=== PATIENT | female | born 2005 | race Caucasian/White ===

== ENCOUNTER 2024-01-11 23:32 | Emergency (ER) | payer SELFPAY ==
[~2024-01-11] VITALS: Ht 165.1 cm; Wt 78.0 kg
[2024-01-11 23:54] VITALS: O2SAT 98
[2024-01-12] MEDS ORDERED: METOCLOPRAMIDE HCL 10MG/2ML VIAL IV ONE (02:00)
[2024-01-12] MEDS ORDERED: KETOROLAC 15MG/ML VIAL IV ONE (02:00)
[2024-01-12 03:00] LABS: *AMPHETAMINES SCREEN URINE NEGATIVE (NEGATIVE); *BARBITURATES SCREEN URINE NEGATIVE (NEGATIVE); *BENZODIAZEPINES SCREEN URINE NEGATIVE (NEGATIVE); *COCAINE SCREEN URINE NEGATIVE (NEGATIVE); CANNABINOID URINE SCREEN NEGATIVE (NEGATIVE); ECSTASY MDMA SCREEN URINE NEGATIVE (NEGATIVE); METHADONE URINE SCREEN NEGATIVE (NEGATIVE); OPIATES URINE SCREEN NEGATIVE (NEGATIVE); PHENCYCLIDINE URINE SCREEN NEGATIVE (NEGATIVE)
[2024-01-12 03:46] LABS: BASOPHILS % 0.4 % (0.0-2.0); EOSINOPHILS % 4.2 % (0.0-5.0); HEMATOCRIT. 40.1 % (36.0-48.0); HEMOGLOBIN. 13.4 g/dL (12.0-16.0); LYMPHOCYTES % 24.2 % (20.0-50.0); MEAN CORPUSCULAR HEMOGLOBIN 29.5 pg (28.0-32.0); MEAN CORPUSCULAR HGB CONC 33.5 g/dL (31.0-37.0); MEAN CORPUSCULAR VOLUME 88.2 fL (81.0-99.0); MEAN PLATELET VOLUME 9.6 fl (7.4-10.4); MONOCYTES % 7.3 % (2.0-8.0); NEUTROPHILS % 63.9 % (40.0-76.0); PLATELET 205 x1000/uL (130-400); RED BLOOD CELL COUNT 4.54 mill/uL (4.2-5.4); RED CELL DISTRIBUTION WIDTH 13.5 % (11.6-14.6); WHITE BLOOD COUNT 9.2 x1000/uL (4.5-11.0)
[2024-01-12 04:01] LABS: CARBON DIOXIDE 25 mEq/L (21-32); CHLORIDE 108 mEq/L (98-107); POTASSIUM 3.6 mEq/L (3.5-5.1); SODIUM 139 mEq/L (136-145)
[2024-01-12 04:02] LABS: CALCIUM 9.2 mg/dL (8.7-10.4)
[2024-01-12 04:07] LABS: CREATININE 0.6 mg/dL (0.6-1.0); GLUCOSE 96 mg/dL (70-105); UREA NITROGEN BLOOD 12 mg/dL (9-23)
[2024-01-12 04:09] LABS: ALANINE AMINOTRANSFERASE 19 IU/L (10-49); ALBUMIN 4.6 g/dL (3.2-4.8); ASPARTATE AMINOTRANSFERASE 19 IU/L (<34); BILIRUBIN DIRECT 0.1 mg/dL (<=3.0); BILIRUBIN TOTAL 0.4 mg/dL (0.1-1.0); ETHANOL BLOOD < 10 mg/dL (<10); PROTEIN TOTAL 6.7 g/dL (6.0-8.3)
[2024-01-12 04:13] LABS: HCG SCREEN NEGATIVE
[2024-01-12 04:32] LABS: CLARITY URINE CLOUDY (CLEAR); COLOR URINE YELLOW (YELLOW); GLUCOSE URINE NEGATIVE (NEGATIVE); KETONES URINE NEGATIVE (NEGATIVE); LEUKOCYTE ESTERASE URINE 2+ (NEGATIVE); NITRITE URINE NEGATIVE (NEGATIVE); OCCULT BLOOD URINE NEGATIVE (NEGATIVE); PH URINE 6.5 (4.5-8.0); PROTEIN URINE NEGATIVE (NEGATIVE); SPECIFIC GRAVITY URINE 1.022 (1.005-1.030); UROBILINOGEN URINE 0.2 E.U./dL (0.2-1.0)
[2024-01-12 04:44] LABS: BACTERIA URINE 3+; SQUAMOUS EPITHELIAL CELL URINE 2+ /lpf (RARE/1+)
[2024-01-12] MEDS: SODIUM CHLORIDE 0.9% 1,000 ML IV ONE (05:28)
[2024-01-12] MEDS: KETOROLAC 15MG/ML VIAL IV NR (05:29)
[2024-01-12] MEDS: METOCLOPRAMIDE HCL 10MG/2ML VIAL IV NR (05:29)
[2024-01-12] MEDS: CEPHALEXIN 250MG CAPSULE PO NR (06:11)
[2024-01-12] MEDS ORDERED: ONDA4TAB50 MT (07:02)
[2024-01-12] MEDS ORDERED: CEPH500C2 MT (07:02)
[2024-01-12] MEDS ORDERED: IBUP-2029 MT (07:02)
[2024-01-12 07:16] VITALS: BP 100/78; PULSE 62; RESP 18; TEMP 98.2
== END 2024-01-12 07:18 | disposition home or self-care (01) ==
LOC: ER 23:32
DX: N39.0 Urinary tract infection, site not specified (principal); R10.32 Left lower quadrant pain
CPT/HCPCS: 80305; 81003; 36415; 99285; 80076; 80048; 80320; 84703; 83690; 85025; 85610; 74176; 76830; 76856; 96361; 96374; 96375; J1885; J2765; J7030; Z7610 ×2; G0480

== ENCOUNTER 2024-02-13 23:54 | Emergency (ER) | payer SELFPAY ==
[~2024-02-13] VITALS: Ht 162.6 cm; Wt 74.0 kg
[~2024-02-13 23:54] MED LIST: CEPH500C2 MT; IBUP-2029 MT; ONDA4TAB50 MT
[2024-02-14 00:11] VITALS: O2SAT 98
[2024-02-14 00:48] LABS: CHLORIDE 106 mEq/L (98-107); POTASSIUM 3.6 mEq/L (3.5-5.1); SODIUM 138 mEq/L (136-145)
[2024-02-14 00:49] LABS: CALCIUM 9.4 mg/dL (8.7-10.4); CARBON DIOXIDE 26 mEq/L (21-32)
[2024-02-14 00:54] LABS: CREATININE 0.7 mg/dL (0.6-1.0); GLUCOSE 102 mg/dL (70-105); UREA NITROGEN BLOOD 10 mg/dL (9-23)
[2024-02-14 00:56] LABS: BASOPHILS % 0.3 % (0.0-2.0); EOSINOPHILS % 8.3 % (0.0-5.0); HEMATOCRIT. 38.7 % (36.0-48.0); HEMOGLOBIN. 13.1 g/dL (12.0-16.0); LYMPHOCYTES % 21.5 % (20.0-50.0); MEAN CORPUSCULAR HEMOGLOBIN 30.2 pg (28.0-32.0); MEAN CORPUSCULAR VOLUME 88.8 fL (81.0-99.0); MEAN PLATELET VOLUME 9.9 fl (7.4-10.4); MONOCYTES % 5.6 % (2.0-8.0); NEUTROPHILS % 64.3 % (40.0-76.0); PLATELET 207 x1000/uL (130-400); RED BLOOD CELL COUNT 4.35 mill/uL (4.2-5.4); RED CELL DISTRIBUTION WIDTH 13.6 % (11.6-14.6); WHITE BLOOD COUNT 11.3 x1000/uL (4.5-11.0)
[2024-02-14 01:21] LABS: HCG SCREEN NEGATIVE
[2024-02-14] MEDS: ACETAMINOPHEN 325MG TABLET PO ONE (02:01)
[2024-02-14 02:19] VITALS: BP 110/67; PULSE 64; RESP 18; TEMP 98.4
== END 2024-02-14 02:20 | disposition home or self-care (01) ==
LOC: ER 23:54
DX: R07.89 Other chest pain (principal); R51.9 Headache, unspecified; M54.50 Low back pain, unspecified
CPT/HCPCS: 36415; 71045; 80048; 84703; 85025; 93005; 99285